=== PATIENT | female | born 1960 | race Caucasian/White ===

== ENCOUNTER 2021-09-08 21:29 | Inpatient (IN) | payer MEDICAID, SELFPAY ==
[2021-09-08 21:29] VITALS: BP 142/84; PULSE 84; RESP 18; TEMP 36.8; O2SAT 98
[2021-09-08 21:33] VITALS: BMI 29.9
[2021-09-08 21:48] VITALS: BP 142/84; PULSE 84; RESP 18; TEMP 36.8; O2SAT 98; BMI 29.0
--- NOTE | 2021-09-08 23:55 | PC.ADMIT ---
Admission Note: Patient is a 60 year old female who is a direct admit from [facility]. She reports that a brush trimming machine setter ordered her to get a psych eval because her sister is trying to say she is mentally incompetent to get control of the patient's finances. The Ed report states that she has had 6 months of hallucinations with erratic behavior the last 2 weeks. She has no psych history. She states that she has chirrosis of the liver and takes medications for that. The only medications listed on the ED report is lasix and pantaprozole. She states she just became disabled last month from a back surgery in February. The patient,Courtney Cheema,60 y/o, was given written information regarding hospital policies, unit procedures and contact persons. Patient's smoking status: . Vital Signs - 8 hr 09/08/21 21:29 09/08/21 21:48 Temperature 98.3 F 98.3 F Pulse Rate 84 84 Respiratory Rate 18 18 Blood Pressure 142/84 142/84 Pulse Oximetry 98 98
[2021-09-09 06:00] VITALS: BP 105/73; PULSE 75; RESP 18; TEMP 36.8; O2SAT 97
[2021-09-09] MEDS: FUROsemide 20 mg Tablet PO (06:17)
[2021-09-09] MEDS: pantoprazole DR 40 mg Tablet PO (08:15)
[2021-09-09] MEDS: nitrofurantoin SR (BID) 100 mg Capsule PO ×2 (08:15→20:33)
--- NOTE | 2021-09-09 10:58 | P.NPUHP_ITS ---
Providers/Chief Complaint Admitting Physician: Prasanna Stark MD Chief Complaint: Psychosis HPI NPU History of Present Illness Courtney Cheema is a 60 year old female who was admitted from an outside emergency department with the following report: The patient is a 51-year-old female who presents to the emergency department today with complaints about a 6-month history of hallucinations.? I attempted to get a history from patient but she is so distracted with what is in her bags and trying to get money to someone who apparently is not even in the lobby that it was hard to get her organized enough to further evaluate her at this time.? History gathered from 2 sons and also from nursing staff is that patient has been acting very erratically in the past couple of weeks.? She apparently does have a history of alcohol abuse.? Apparently in the past couple of weeks she has been calling police frequently saying that there are people that are being killed out in front of her apartment.? She is also paranoid that there have been people in her apartment.? She feels like people are out to steal her money.? There has been no known history of psychiatric problems in the past. She was admitted to the neuropsychiatry unit for definitive treatment. They discovered that she has cirrhosis of the liver alcohol addiction about 2 years ago. She has been taking medication to manage her ammonia levels but it is not very effective. She has been having auditory hallucinations and paranoia for at least 1 year. These are worse when she is isolated. She has a house [place] the [place] and there are several other houses on the [facility] but only one of them is occupied all year long. There are people who come and try to break into cabinets but much more often she hears people and thinks people are better when they are not especially in the winter when she is very isolated. She says that she has been accused of breaking into the cabins because she is the only one there. Memorial Day weekend there were plenty of people there and she could not have that feeling. However after they left she started thinking that people were coming around again. She was at a hotel for a couple of days recently so that she could do some shopping. She was recently approved for disability and started getting some checks for back payment as well as monthly checks. She says that she has been living on basically nothing for the last 2 years. Luckily, her house is paid for. At this hotel she thought that there were people dancing nude in front of windows so that people could see. She also thought that some people had been killed. She thought that some children have been abducted and that one of the children had been shot in the foot. She called the police many times and they brought her to the hospital for evaluation. She was also discovered to have a urinary tract infection and has been on Macrobid for that for the last 3 days. She says that as long as she is around other people she expects these hallucinations and paranoid to be much improved. She did not have much difficulty while she was in the hospital awaiting transferred here or since she has been here. She would like to take something on a regular basis to try to help prevent psychosis. Meds NPU Allergies Allergy/AdvReac Type Severity Reaction Status Date / Time No Known Allergies Allergy Verified 09/08/21 21:33 Mental Status Exam MSE Comments: This is a 60-year-old overweight female who appears approximately her stated age and is in no acute distress. She is dressed in hospital scrubs and fairly well groomed. She is pleasant and cooperative with the evaluation. Eye contact is good. psychomotor activity is normal. Speech is at a regular rate and rhythm, normal volume, good articulation, not pressured. Alert, oriented X3 Attention and concentration appear to be normal. Memory is intact Mood is good. Affect is mildly dysphoric, concerned Thought process is logical and goal-directed. Thought content: Denies auditory and visual hallucinations. No delusions or paranoia are noted. No current suicidal ideation. He denies homicidal ideation. Fund of knowledge is average. Insight and judgment appear to be fairly good at this time. Impulse control is fair. Vitals/I&O/Wt Last Vital Signs Temp 98.3 F 09/09/21 06:00 Pulse 75 09/09/21 06:00 Resp 18 09/09/21 06:00 BP 105/73 09/09/21 06:00 Pulse Ox 97 09/09/21 06:00 Weight last 48 hrs Weight 81.647 kg Weight 81.647 kg A&P Assessment and plan (1) Hepatic cirrhosis: Status: Acute (2) Psychosis: Status: Acute (3) Urinary tract infection: Status: Acute Plan This is a 60-year-old female with alcoholic cirrhosis who has psychosis possibly precipitated by imbalances due to her cirrhosis and possibly exacerbated by urinary tract infection this last week. Plan: 1. Continue current medication. Macrobid for urinary tract infection. Add risperidone 0.5 mg at bedtime and increase as tolerated. 2. Continue every 15 minute checks for safety. 3. Encourage individual, group and milieu therapies. 4. Encourage sober living treatment after discharge at the highest level of care to which he is willing to commit. 5. We will monitor for safety for himself in the community prior to discharge. Involuntary Hold Information 96 Hour Hold: 96 Hour Involuntary Admission: Yes 96 Hour Hold Ending Date: 09/12/21 96 Hour Hold Ending Time: 21:25 Attestations NPU Medical Necessity Statement*: Inpatient hospitalization is medically necessary and the clinically appropriate intervention at this time. We will initiate medications and make changes as indicated. She will be in the hospital for over 2 midnights. Likely length of stay 4-6 days Coding Level of Care Code Acute Flight Attendant/Inflight Supervisor for Michael Kamara Diagnoses Hepatic cirrhosis K74.60 Psychosis F29 Urinary tract infection N39.0
[2021-09-09 14:00] VITALS: BP 113/76; PULSE 83; RESP 18; TEMP 36.6; O2SAT 95
[2021-09-09] MEDS: lactulose oral liq 20 gm/30 mL UDC 30 GM PO ×2 (15:39→20:34)
[2021-09-09 19:59] VITALS: BP 112/74; PULSE 94; RESP 16; TEMP 36.8; O2SAT 96
[2021-09-09] MEDS: risperiDONE 1 mg Tablet 0.5 MG PO (20:33)
[2021-09-09] MEDS: NON-FORMULARY MEDICATION 1 EACH PO (20:36)
[2021-09-10 06:00] VITALS: BP 121/75; PULSE 73; RESP 17; TEMP 36.6; O2SAT 95
[2021-09-10] MEDS: FUROsemide 20 mg Tablet PO (06:00)
[2021-09-10] MEDS: pantoprazole DR 40 mg Tablet PO (09:12)
[2021-09-10] MEDS: lactulose oral liq 20 gm/30 mL UDC 30 GM PO ×2 (09:13→20:20)
[2021-09-10] MEDS: nitrofurantoin SR (BID) 100 mg Capsule PO ×2 (09:13→20:20)
[2021-09-10] MEDS: NON-FORMULARY MEDICATION 1 EACH PO ×2 (09:20→20:21)
--- NOTE | 2021-09-10 13:06 | W.PM.NPUPNS ---
Subjective NPU Subjective: She says that her mind seems more clear today. She attributes that to the risperidone 0.5 mg last night. She denies any side effects. She slept well. She is mostly worried about her dog. The neighbor says that the dog is not in the house. There is no way he could have gotten out on her own. She is hopeful that another friend went and got the dog and took it to the kennel. She has a male friend that she sees periodically. He has invited her to stay with him for a little while after she gets out of the hospital. She is very happy about that. Mental Status Exam MSE Comments: This is a 60-year-old overweight female who appears approximately her stated age and is in no acute distress. She is dressed in hospital scrubs and fairly well groomed. She is pleasant and cooperative with the evaluation. Eye contact is good. psychomotor activity is normal. Speech is at a regular rate and rhythm, normal volume, good articulation, not pressured. Alert, oriented X3 Attention and concentration appear to be normal. Memory is intact Mood is good. Affect is mildly dysphoric, concerned Thought process is logical and goal-directed. Thought content: Denies auditory and visual hallucinations. No delusions or paranoia are noted. No current suicidal ideation. He denies homicidal ideation. Fund of knowledge is average. Insight and judgment appear to be fairly good at this time. Impulse control is fair. Cognition: Patient Appearance: Appropriate Ability to Follow Directions: Excellent Patient Orientation (long list): Person, Place, Time, Name, Month and Year Comprehension Ability: No Impairment Hallucination Type: None Delusion Description: Not Present Thought Process: Appropriate and Logical Affect: Affect Description: Appropriate Behavior: Patient Behavior: Appropriate Speech Pattern: Appropriate Vitals/I&O/Wt Last Vital Signs Temp 98 F 09/10/21 06:00 Pulse 73 09/10/21 06:00 Resp 17 09/10/21 06:00 BP 121/75 09/10/21 06:00 Pulse Ox 95 09/10/21 06:00 Weight last 48 hrs Weight 81.647 kg Weight 81.647 kg A&P Assessment and plan (1) Hepatic cirrhosis: Status: Acute (2) Psychosis: Status: Acute (3) Urinary tract infection: Status: Acute Plan This is a 60-year-old female with alcoholic cirrhosis who has psychosis possibly precipitated by imbalances due to her cirrhosis and possibly exacerbated by urinary tract infection this last week. Plan: 1. Continue current medication. Macrobid for urinary tract infection. Add risperidone 0.5 mg at bedtime and increase as tolerated. 2. Continue every 15 minute checks for safety. 3. Encourage individual, group and milieu therapies. 4. Encourage sober living treatment after discharge at the highest level of care to which he is willing to commit. 5. We will monitor for safety for himself in the community prior to discharge. Involuntary Hold Information 96 Hour Hold: 96 Hour Involuntary Admission: Yes 96 Hour Hold Ending Date: 09/12/21 96 Hour Hold Ending Time: 21:25 Attestations NPU Medical Necessity Statement*: Inpatient hospitalization is medically necessary and the clinically appropriate intervention at this time. We will initiate medications and make changes as indicated. Coding Level of Care Code Acute Supervisor [employer] for Michael Kamara Diagnoses Hepatic cirrhosis K74.60 Psychosis F29 Urinary tract infection N39.0
[2021-09-10 14:00] VITALS: BP 95/57; PULSE 79; RESP 18; TEMP 36.7; O2SAT 95
[2021-09-10 19:55] VITALS: BP 108/76; PULSE 80; RESP 16; TEMP 36.4; O2SAT 95
[2021-09-10] MEDS: risperiDONE 1 mg Tablet 0.5 MG PO (20:20)
[2021-09-11 06:00] VITALS: BP 109/71; PULSE 67; RESP 17; TEMP 36.7; O2SAT 94
--- NOTE | 2021-09-11 06:11 | W.PM.NPUDCS ---
Diagnoses at Discharge Discharge Diagnosis (1) Hepatic cirrhosis: Status: Acute (2) Psychosis: Status: Acute (3) Urinary tract infection: Status: Acute Reason for Visit Reason for Visit: Psychosis Brief History: History of Present Illness Courtney Cheema is a 60 year old female who was admitted from an outside emergency department with the following report: The patient is a 51-year-old female who presents to the emergency department today with complaints about a 6-month history of hallucinations.? I attempted to get a history from patient but she is so distracted with what is in her bags and trying to get money to someone who apparently is not even in the lobby that it was hard to get her organized enough to further evaluate her at this time.? History gathered from 2 sons and also from nursing staff is that patient has been acting very erratically in the past couple of weeks.? She apparently does have a history of alcohol abuse.? Apparently in the past couple of weeks she has been calling police frequently saying that there are people that are being killed out in front of her apartment.? She is also paranoid that there have been people in her apartment.? She feels like people are out to steal her money.? There has been no known history of psychiatric problems in the past. She was admitted to the neuropsychiatry unit for definitive treatment.? They discovered that she has cirrhosis of the liver alcohol addiction about 2 years ago.? She has been taking medication to manage her ammonia levels but it is not very effective.? She has been having auditory hallucinations and paranoia for at least 1 year.? These are worse when she is isolated.? She has a house on the [place] and there are several other houses on the [facility] but only one of them is occupied all year long.? There are people who come and try to break into cabinets but much more often she hears people and thinks people are better when they are not especially in the winter when she is very isolated.? She says that she has been accused of breaking into the cabins because she is the only one there.? Memorial there were plenty of people there and she could not have that feeling.? However after they left she started thinking that people were coming around again.? She was at a hotel for a couple of days recently so that she could do some shopping.? She was recently approved for disability and started getting some checks for back payment as well as monthly checks.? She says that she has been living on basically nothing for the last 2 years.? Luckily, her house is paid for.? At this hotel she thought that there were people dancing nude in front of windows so that people could see.? She also thought that some people had been killed.? She thought that some children have been abducted and that one of the children had been shot in the foot.? She called the police many times and they brought her to the hospital for evaluation.? She was also discovered to have a urinary tract infection and has been on Macrobid for that for the last 3 days.? She says that as long as she is around other people she expects these hallucinations and paranoid to be much improved.? She did not have much difficulty while she was in the hospital awaiting transferred here or since she has been here.? She would like to take something on a regular basis to try to help prevent psychosis. Hospital Course Hospital Course She slowly acclimated to the individual, group and milieu therapies provided. We continued treatment of her urinary tract infection with Macrobid. She was started on risperidone 0.5 mg at bedtime. She tolerated these doses and showed steady improvement during her stay. She was able to contract for safety outside hospital prior to discharge. During the hospitalization, patient had routine laboratory studies which were within normal limits except for few outliers. Additionally there was a general medical evaluation which was also within normal limits and revealed no new acute processes. Discharge Summary: At the time of discharge, lethality was denied and psychosis was resolving. Mood and anxiety were well managed. Patient endorsed a plan to follow-up with the aftercare recommendations of the treatment team. Patient was evaluated and deemed to be absent credible lethality, and had achieved the maximum benefit from an inpatient hospitalization, so was discharged. Involuntary Hold Information 96 Hour Hold: 96 Hour Involuntary Admission: Yes 96 Hour Hold Ending Date: 09/12/21 96 Hour Hold Ending Time: 21:25 Mental Status Exam MSE Comments: This is a 60-year-old overweight female who appears approximately her stated age and is in no acute distress. She is dressed in hospital scrubs and fairly well groomed. She is pleasant and cooperative with the evaluation. Eye contact is good. psychomotor activity is normal. Speech is at a regular rate and rhythm, normal volume, good articulation, not pressured. Alert, oriented X3 Attention and concentration appear to be normal. Memory is intact Mood is good. Affect is mildly dysphoric, concerned Thought process is logical and goal-directed. Thought content: Denies auditory and visual hallucinations. No delusions or paranoia are noted. No current suicidal ideation. He denies homicidal ideation. Fund of knowledge is average. Insight and judgment appear to be fairly good at this time. Impulse control is fair. Cognition: Patient Appearance: Appropriate Ability to Follow Directions: Excellent Patient Orientation (long list): Person, Place, Time, Name, Month and Year Comprehension Ability: No Impairment Hallucination Type: None Delusion Description: Not Present Thought Process: Appropriate and Logical Affect: Affect Description: Appropriate Behavior: Patient Behavior: Appropriate Speech Pattern: Appropriate Discharge Data Vitals: Last Vital Signs Temp 97.6 F 09/10/21 19:55 Pulse 80 09/10/21 19:55 Resp 16 09/10/21 19:55 BP 108/76 09/10/21 19:55 Pulse Ox 95 09/10/21 19:55 Discharge Plan Discharge Patient Disposition: Home Condition: Stable Prescriptions: New risperidone 1 mg Tablet 0.5 mg PO BEDTIME 30 Days Qty: 30 1RF nitrofurantoin monohyd/m-cryst 100 mg Capsule 100 mg PO 0900,2100 4 Days Qty: 8 0RF Discharge Orders: Discharge Order (Routine); Ordered 09/11/21 Ordered By: Prasanna Stark Referrals: [facility] -Dr. Marcello Esqueda MD [Other] [facility] Arianna Duncan MD [Other] [facility] -Wali Meneses M.D [Other] [facility] [Other] - 09/17/21 9:45 am (Initial appointment with Summer Hernandez. Appointment is at 10:00 am but be there at 9:45 am for check in. ) Discharge Diet: Regular Discharge Activity: Resume usual activity Patient Instructions: Opioid Safety Discharge Attestations NPU Time Spent in Discharge Care*: less than 30 min Specific Discharge Activities: Specific discharge activities: educating patient, discussing with case finisher/social workers/dc planners, documenting/other paperwork and evaluating patient/reviewing data Coding Level of Care Code Acute Chg FW DC note Diagnoses Hepatic cirrhosis K74.60 Psychosis F29 Urinary tract infection N39.0
[2021-09-11] MEDS: lactulose oral liq 20 gm/30 mL UDC 30 GM PO (08:16)
[2021-09-11] MEDS: nitrofurantoin SR (BID) 100 mg Capsule PO (08:17)
[2021-09-11] MEDS: NON-FORMULARY MEDICATION 1 EACH PO (08:17)
[2021-09-11] MEDS: FUROsemide 20 mg Tablet PO (08:17)
[2021-09-11 08:42] VITALS: BP 109/71; PULSE 67; RESP 17; TEMP 36.7; O2SAT 94
== END 2021-09-11 08:53 | disposition home or self-care (01) | DRG 885 ==
PROVIDERS: Admitting Provider Psychiatry & Neurology Psychiatry; Visit Provider Psychiatry & Neurology Psychiatry
DX: F29 Unspecified psychosis not due to a substance or known physiological condition (principal); N39.0 Urinary tract infection, site not specified; K70.30 Alcoholic cirrhosis of liver without ascites; F10.10 Alcohol abuse, uncomplicated
CPT/HCPCS: 97150; 97165